=== PATIENT | male | born 1945 | race Caucasian/White ===

== ENCOUNTER 2017-05-28 11:48 | Emergency (ER) | payer MEDICARE, BC ==
[2017-05-28 12:54] LABS: ALT (SGPT) 22 U/L (8-55); AST (SGOT) 37 U/L (5-34); Albumin 4.1 g/dL (3.4-4.8); Alkaline Phosphatase 65 U/L (40-150); Anion Gap 16 mmol/L (10-20); BUN (Urea Nitrogen) 19 mg/dL (8.4-25.7); Bilirubin, Total 0.7 mg/dL (0.2-1.2); Calc. Creatinine Clearance 0 mL/min (70-130); Calcium 9.4 mg/dL (7.8-10.44); Carbon Dioxide 21 mmol/L (23-31); Chloride 101 mmol/L (98-107); Estimated GFR-MDRD 76; Globulin 3.5 g/dL (2.4-3.5); Glucose 136 mg/dL (83-110); Potassium 4.1 mmol/L (3.5-5.1); Protein, Total 7.6 g/dL (5.8-8.1); Sodium 134 mmol/L (136-145)
[2017-05-28 12:58] LABS: CKMB 7.4 ng/mL (0-6.6); Troponin I 2.197 ng/mL (< 0.028)
[2017-05-28 13:02] LABS: #Basophils 0.1 thou/uL (0.0-0.2); #Eosinphils 0.2 thou/uL (0.0-0.7); #Lymphocytes 0.9 thou/uL (1.20-3.40); #Monocytes 0.9 thou/uL (0.11-0.59); #Neutrophils 5.6 thou/uL (1.40-6.50); %Basophils 1.5 % (0.0-1.0); %Eosinophils 2.1 % (0.0-10.0); %Lymphocytes 11.9 % (21.0-51.0); %Monocytes 11.9 % (0.0-10.0); %Neutrophils 72.6 % (42.0-75.0); Hemoglobin 14.8 g/dL (14.0-18.0); Mean Corpuscular HGB CONC 34.2 g/dL (32.0-36.0); Mean Corpuscular Hemoglobin 32.5 pg (27.0-31.0); Mean Platelet Volume 8.4 fL (7.4-10.4); Platelet Count 141 thou/uL (130-400); RBC Distribution Width 11.5 % (11.5-14.5); Red Blood Cell (RBC) Count 4.55 mill/uL (4.70-6.10); White Blood Cell (WBC) Count 7.8 thou/uL (4.8-10.8)
[2017-05-28] MEDS ORDERED: Oseltamivir 75 MG CAP ONE (13:32)
--- NOTE | 2017-05-28 21:21 | RAD ---
CHEST TWO VIEWS 05/28/17 No prior films are available for comparison. The heat is moderately enlarged. There is no clear congestive change or edema. No effusions are seen. There does appear to be some increase in lung markings in the left lower lobe posteriorly. I cannot tell if this is acute or chronic. If there are signs and symptoms of pneumonia, he might be treated a s such. The lungs are otherwise clear. Extensive degenerative changes are seen in the spine. IMPRESSION: 1. Prominent cardiomegaly without congestive change. 2. Possible left lower lobe infiltrate. Code T POS: HOME
== END 2017-05-28 13:57 | disposition left against medical advice (07) ==
LOC: BURERS 11:48
DX: I21.4 Non-ST elevation (NSTEMI) myocardial infarction (principal); J11.1 Influenza due to unidentified influenza virus with other respiratory manifestations; F32.9 Major depressive disorder, single episode, unspecified
CPT/HCPCS: 36415; 71046; 80053; 82553; 84484; 85025; 93005